=== PATIENT | male | born 1990 | race Asian ===

== ENCOUNTER 2019-09-28 19:40 | Inpatient (IN) | payer MEDICAID ==
[~2019-09-28] VITALS: Ht 175.3 cm; Wt 65.0 kg
[2019-09-28 21:31] LABS: BASOPHILS % (AUTO) 0.4 % (0.0-2.0); EOSINOPHILS % (AUTO) 0.4 % (1.0-6.0); LYMPHOCYTES # (AUTO) 0.9 K/uL (1.0-4.8); LYMPHOCYTES % (AUTO) 9.3 % (22.0-44.0); MEAN CORPUSCULAR HEMOGLOBIN 29.9 pg (26.0-34.0); MEAN CORPUSCULAR VOLUME 88 fL (80-100); MONOCYTES # (AUTO) 0.5 K/uL (0.1-1.0); MONOCYTES % (AUTO) 5.3 % (2.0-9.0); NEUTROPHILS # (AUTO) 8.6 K/uL (1.8-7.7); NEUTROPHILS % (AUTO) 84.6 % (40.0-70.0); PLATELET COUNT (AUTO) 313 K/uL (150-450); RED BLOOD CELL COUNT(AUTO) 5.34 MIL/uL (4.50-5.90); RED CELL DISTRIBUTION WIDTH 12.9 % (11.5-14.5)
[2019-09-28 21:43] LABS: ANION GAP 9 mmol/L (8-16); CARBON DIOXIDE 31 mmol/L (22-29); CHLORIDE 101 mmol/L (98-107); CREATININE 1.11 mg/dL (0.60-1.30); GLOMERULAR FILTR. RATE CALC > 60 mL/min (>60); GLUCOSE,RANDOM 114 mg/dL (70-110); POTASSIUM 3.8 mmol/L (3.5-5.1); SODIUM SERUM 141 mmol/L (136-145); UREA NITROGEN, BLOOD 12 mg/dL (7-18)
[2019-09-28 21:48] LABS: ALANINE AMINOTRANSFERASE 190 U/L (12-78); ALBUMIN 4.9 g/dL (3.4-5.0); ALKALINE PHOSPHATASE 94 U/L (46-116); ASPARTATE AMINOTRANSFERASE 248 U/L (15-37); BILIRUBIN,TOTAL 1.5 mg/dL (0.1-1.0); LIPASE 104 U/L (73-393)
[2019-09-28] MEDS ORDERED: CefTRIAXone 1 GM/DEXTROSE 50 ML IV ONE (22:00)
[2019-09-28] MEDS ORDERED: MetroNIDAZOLE 500 MG/NACL 100 ML IV ONE (22:00)
[2019-09-28 22:23] LABS: APPEARANCE,URINE TURBID (CLEAR); BILIRUBIN,URINE NEGATIVE (NEGATIVE); GLUCOSE, URINE (UA) NEGATIVE (NEGATIVE); KETONES,URINE NEGATIVE (NEGATIVE); LEUKOCYTE ESTERASE ,URINE NEGATIVE (NEGATIVE); NITRATE,URINE NEGATIVE (NEGATIVE); OCCULT BLOOD,URINE NEGATIVE (NEGATIVE); PH,URINE 7.5 (5.0-8.0); PROTEIN,URINE NEGATIVE (NEGATIVE)
[2019-09-28] MEDS ORDERED: ONDANSETRON HCL 4 MG/2 ML VIAL IVP PRN (22:30)
[2019-09-28] MEDS ORDERED: ACETAMINOPHEN 325 MG TABLET PO PRN (22:30)
[2019-09-28] MEDS ORDERED: 0.9% SODIUM CHLORIDE 10 ML SYRINGE IVP PRN (22:30)
[2019-09-29] MEDS ORDERED: POTASSIUM CHL 10 MEQ/WATER 50 ML IV PRN
[2019-09-29] MEDS ORDERED: POTASSIUM CHLORIDE 20 MEQ ER TABLET PO PRN
[2019-09-29] MEDS ORDERED: MAGNESIUM SULFATE 2 GM/WATER 50 ML IV PRN
[2019-09-29] MEDS ORDERED: MAGNESIUM SULFATE 4 GM/WATER 100 ML IV PRN
[2019-09-29] MEDS ORDERED: MORPHINE SULFATE 2 MG/ML SYRINGE IVP PRN
[2019-09-29] MEDS ORDERED: ONDANSETRON HCL 4 MG/2 ML VIAL IVP PRN
[2019-09-29] MEDS ORDERED: MAGNESIUM OXIDE 400 MG TABLET PO PRN
[2019-09-29] MEDS: HEPARIN SODIUM,PORCINE 5,000 UNITS/ML VIAL SQ SCH ×3 (00:48→15:43)
[2019-09-29 02:05] VITALS: BP 148/101
[2019-09-29 04:30] VITALS: BP 140/109
[2019-09-29] MEDS: PIPERACILLIN/TAZO 3.375 GM/D5W 50 ML IV SCH ×2 (05:03→16:16)
[2019-09-29 08:03] LABS: BASOPHILS % (AUTO) 0.3 % (0.0-2.0); EOSINOPHILS % (AUTO) 1.8 % (1.0-6.0); HEMATOCRIT 45.8 % (41-53); HEMOGLOBIN 15.5 g/dL (13.5-17.5); LYMPHOCYTES # (AUTO) 1.1 K/uL (1.0-4.8); LYMPHOCYTES % (AUTO) 12.7 % (22.0-44.0); MEAN CORPUSCULAR HEMOGLOBIN 29.7 pg (26.0-34.0); MEAN CORPUSCULAR HGB CONC 33.8 G/dL (31.0-37.0); MEAN CORPUSCULAR VOLUME 88 fL (80-100); MONOCYTES # (AUTO) 0.7 K/uL (0.1-1.0); MONOCYTES % (AUTO) 8.2 % (2.0-9.0); NEUTROPHILS # (AUTO) 6.7 K/uL (1.8-7.7); PLATELET COUNT (AUTO) 307 K/uL (150-450); RED BLOOD CELL COUNT(AUTO) 5.22 MIL/uL (4.50-5.90); RED CELL DISTRIBUTION WIDTH 12.7 % (11.5-14.5); RETICULOCYTE % (AUTO) 1.2 % (0.5-2.3)
[2019-09-29 08:19] LABS: PROTHROMBIN TIME 10.5 SEC (9.4-11.6)
[2019-09-29 08:22] LABS: ALANINE AMINOTRANSFERASE 462 U/L (12-78); ALBUMIN 4.2 g/dL (3.4-5.0); ALKALINE PHOSPHATASE 110 U/L (46-116); ANION GAP 8 mmol/L (8-16); ASPARTATE AMINOTRANSFERASE 404 U/L (15-37); BILIRUBIN,TOTAL 4.5 mg/dL (0.1-1.0); CALCIUM, TOTAL 9.3 mg/dL (8.8-10.5); CARBON DIOXIDE 28 mmol/L (22-29); CHLORIDE 103 mmol/L (98-107); CREATININE 0.87 mg/dL (0.60-1.30); GLOMERULAR FILTR. RATE CALC > 60 mL/min (>60); GLUCOSE,RANDOM 96 mg/dL (70-110); POTASSIUM 3.6 mmol/L (3.5-5.1); SODIUM SERUM 139 mmol/L (136-145); TOTAL PROTEIN, SERUM 8.1 g/dL (6.4-8.2); UREA NITROGEN, BLOOD 7 mg/dL (7-18)
[2019-09-29] MEDS: PANTOPRAZOLE SODIUM 40 MG/VIAL IVP SCH (08:52)
[2019-09-29 08:53] VITALS: BP 130/67
[2019-09-29] MEDS ORDERED: LIDOCAINE 2%/EPI 1:200,000/PF 20 ML VIAL ONE (09:01)
[2019-09-29] MEDS ORDERED: SODIUM CHLORIDE 0.9% 0 ML ONE (09:02)
[2019-09-29] MEDS ORDERED: BUPIVACAINE HCL/PF 0.5% 30 ML VIAL ONE (09:02)
[2019-09-29] MEDS ORDERED: MEPERIDINE-PF 25 MG/ML VIAL IVP PRN (10:15)
[2019-09-29] MEDS ORDERED: FentaNYL CITRATE-PF 100 MCG/2 ML VIAL IVP PRN (10:15)
[2019-09-29] MEDS ORDERED: HYDROmorphone 2 MG/ML SYRINGE IVP PRN (10:15)
[2019-09-29] MEDS ORDERED: RINGERS SOLUTION,LACTATED 1,000 ML IV ONE ×3 (10:18→12:35)
[2019-09-29] MEDS ORDERED: FLUMAZENIL 0.1 MG/ML 5 ML VIAL IVP ONE (11:43)
[2019-09-29] MEDS ORDERED: ALBUTEROL SULFATE 2.5 MG/0.5 ML NEB SOLUTION NEB ONE ×2 (12:36→12:45)
[2019-09-29] MEDS ORDERED: FUROSEMIDE 40 MG/4 ML VIAL ONE (12:41)
[2019-09-29 15:47] VITALS: BP 132/92
[2019-09-29] MEDS ORDERED: SODIUM CHLORIDE 0.9% 250 ML IV ONE (16:13)
[2019-09-29] MEDS ORDERED: SODIUM CHLORIDE 0.9% 1,000 ML IV ONE ×2 (17:30)
[2019-09-29] MEDS ORDERED: FUROSEMIDE 20 MG/2 ML VIAL IVP ONE (17:45)
[2019-09-29] MEDS: HYDROCODONE/ACETAMINOPHEN 5-325 MG TABLET PO PRN (18:22)
[2019-09-29 20:41] VITALS: BP 146/92
[2019-09-29] MEDS: FUROSEMIDE 20 MG/2 ML VIAL IVP SCH (21:00)
[2019-09-29] MEDS: OXYGEN THERAPY IH SCH (21:08)
[2019-09-30] VITALS (9 sets, daily range): BP systolic 85–152; BP diastolic 50–101
[2019-09-30] MEDS: PIPERACILLIN/TAZO 3.375 GM/D5W 50 ML IV SCH ×5 (00:22→23:27)
[2019-09-30] MEDS: FUROSEMIDE 20 MG/2 ML VIAL IVP SCH ×2 (00:22→08:04)
[2019-09-30] MEDS ORDERED: MIDAZOLAM HCL 2 MG/2 ML VIAL IVP ONE (06:16)
[2019-09-30] MEDS ORDERED: KETOROLAC TROMETHAMINE 60 MG/2 ML VIAL IM ONE (06:16)
[2019-09-30] MEDS ORDERED: SUCCINYLCHOLINE CHLORIDE 20 MG/ML 10 ML VIAL IVP ONE (06:16)
[2019-09-30] MEDS ORDERED: PROPOFOL 1% 20 ML VIAL IVP ONE (06:16)
[2019-09-30] MEDS ORDERED: ONDANSETRON HCL 4 MG/2 ML VIAL IVP ONE (06:16)
[2019-09-30] MEDS ORDERED: METOPROLOL TARTRATE 5 MG/5 ML VIAL IVP ONE (06:16)
[2019-09-30] MEDS ORDERED: FentaNYL CITRATE-PF 100 MCG/2 ML VIAL IVP ONE (06:16)
[2019-09-30 07:58] LABS: ALANINE AMINOTRANSFERASE 519 U/L (12-78); ALKALINE PHOSPHATASE 197 U/L (46-116); ANION GAP 14 mmol/L (8-16); ASPARTATE AMINOTRANSFERASE 267 U/L (15-37); BILIRUBIN,TOTAL 9.6 mg/dL (0.1-1.0); CALCIUM, TOTAL 9.1 mg/dL (8.8-10.5); CARBON DIOXIDE 29 mmol/L (22-29); CHLORIDE 92 mmol/L (98-107); CREATININE 1.32 mg/dL (0.60-1.30); GLOMERULAR FILTR. RATE CALC > 60 mL/min (>60); GLUCOSE,RANDOM 107 mg/dL (70-110); POTASSIUM 3.9 mmol/L (3.5-5.1); SODIUM SERUM 135 mmol/L (136-145); TOTAL PROTEIN, SERUM 7.8 g/dL (6.4-8.2); UREA NITROGEN, BLOOD 22 mg/dL (7-18)
[2019-09-30] MEDS: HYDROCODONE/ACETAMINOPHEN 5-325 MG TABLET PO PRN (08:03)
[2019-09-30] MEDS: HEPARIN SODIUM,PORCINE 5,000 UNITS/ML VIAL SQ SCH ×4 (08:04→23:37)
[2019-09-30] MEDS: PANTOPRAZOLE SODIUM 40 MG/VIAL IVP SCH (08:04)
[2019-09-30] MEDS: OXYGEN THERAPY IH SCH ×3 (08:05→20:00)
[2019-09-30] MEDS ORDERED: MEPERIDINE-PF 25 MG/ML VIAL IVP PRN (10:15)
[2019-09-30] MEDS ORDERED: FentaNYL CITRATE-PF 100 MCG/2 ML VIAL IVP PRN (10:15)
[2019-09-30] MEDS ORDERED: HYDROmorphone 2 MG/ML SYRINGE IVP PRN (10:15)
[2019-09-30] MEDS ORDERED: SODIUM CHLORIDE 0.9% 1,000 ML ONE (10:55)
[2019-09-30] MEDS ORDERED: IOTHALAMATE MEGLUMINE 600 MG/ML 50 ML VIAL IVP ONE (11:16)
[2019-09-30] MEDS ORDERED: SUGAMMADEX SODIUM 200 MG/2 ML VIAL IVP ONE ×2 (12:19→12:50)
[2019-09-30] MEDS: 0.9% SODIUM CHLORIDE 10 ML SYRINGE IVP PRN ×2 (20:50→23:30)
[2019-09-30] MEDS: MORPHINE SULFATE 2 MG/ML SYRINGE IVP PRN (20:50)
[2019-10-01] MEDS: HYDROCODONE/ACETAMINOPHEN 5-325 MG TABLET PO PRN ×4 (01:39→21:17)
[2019-10-01 04:00] VITALS: BP 150/95
[2019-10-01] MEDS: 0.9% SODIUM CHLORIDE 10 ML SYRINGE IVP PRN (05:12)
[2019-10-01] MEDS: PIPERACILLIN/TAZO 3.375 GM/D5W 50 ML IV SCH ×3 (05:12→16:51)
[2019-10-01 05:24] VITALS: BP 145/92
[2019-10-01] MEDS ORDERED: MIDAZOLAM HCL 2 MG/2 ML VIAL IVP ONE (06:45)
[2019-10-01] MEDS ORDERED: PROPOFOL 1% 20 ML VIAL IVP ONE (06:45)
[2019-10-01] MEDS ORDERED: ROCURONIUM BROMIDE 10 MG/ML 5 ML VIAL IVP ONE (06:45)
[2019-10-01] MEDS ORDERED: DEXAMETHASONE SOD PHOS 4 MG/ML VIAL IVP ONE (06:45)
[2019-10-01] MEDS ORDERED: LIDOCAINE/PF 2% 5 ML VIAL IM ONE (06:45)
[2019-10-01] MEDS ORDERED: ALBUTEROL SULFATE HFA 90 MCG/PUFF 8 GM INHALER IH ONE (06:45)
[2019-10-01] MEDS ORDERED: ONDANSETRON HCL 4 MG/2 ML VIAL IVP ONE (06:45)
[2019-10-01 07:45] VITALS: BP 152/108
[2019-10-01] MEDS: OXYGEN THERAPY IH SCH ×2 (08:00→08:28)
[2019-10-01] MEDS: PANTOPRAZOLE SODIUM 40 MG/VIAL IVP SCH (08:28)
[2019-10-01] MEDS: HEPARIN SODIUM,PORCINE 5,000 UNITS/ML VIAL SQ SCH ×2 (08:28→16:51)
[2019-10-01 11:09] LABS: ANION GAP 10 mmol/L (8-16); CALCIUM, TOTAL 8.8 mg/dL (8.8-10.5); CARBON DIOXIDE 29 mmol/L (22-29); CHLORIDE 95 mmol/L (98-107); CREATININE 1.16 mg/dL (0.60-1.30); GLOMERULAR FILTR. RATE CALC > 60 mL/min (>60); GLUCOSE,RANDOM 105 mg/dL (70-110); POTASSIUM 3.7 mmol/L (3.5-5.1); SODIUM SERUM 134 mmol/L (136-145); UREA NITROGEN, BLOOD 14 mg/dL (7-18)
[2019-10-01 11:10] VITALS: BP 144/95
[2019-10-01 11:14] LABS: ALANINE AMINOTRANSFERASE 400 U/L (12-78); ALKALINE PHOSPHATASE 199 U/L (46-116); ASPARTATE AMINOTRANSFERASE 186 U/L (15-37); BILIRUBIN,TOTAL 7.3 mg/dL (0.1-1.0); TOTAL PROTEIN, SERUM 7.5 g/dL (6.4-8.2)
[2019-10-01 11:15] LABS: ALBUMIN 3.8 g/dL (3.4-5.0); LIPASE 1185 U/L (73-393)
[2019-10-01] MEDS ORDERED: METR500 PO (11:56)
[2019-10-01] MEDS ORDERED: CIPR-278 PO (11:57)
[2019-10-01] MEDS: MORPHINE SULFATE 2 MG/ML SYRINGE IVP PRN ×2 (13:20→16:52)
[2019-10-01 16:00] VITALS: BP 143/100
[2019-10-01 19:29] VITALS: BP 149/98
[2019-10-02] MEDS: PIPERACILLIN/TAZO 3.375 GM/D5W 50 ML IV SCH ×3 (00:03→10:56)
[2019-10-02 00:05] VITALS: BP 146/102
[2019-10-02] MEDS: HEPARIN SODIUM,PORCINE 5,000 UNITS/ML VIAL SQ SCH ×2 (00:09→08:32)
[2019-10-02] MEDS: OXYGEN THERAPY IH SCH (03:47)
[2019-10-02 05:28] VITALS: BP 154/99
[2019-10-02 07:47] VITALS: BP 136/92
[2019-10-02 08:03] LABS: ALANINE AMINOTRANSFERASE 415 U/L (12-78); ALBUMIN 3.8 g/dL (3.4-5.0); ALKALINE PHOSPHATASE 201 U/L (46-116); ANION GAP 8 mmol/L (8-16); ASPARTATE AMINOTRANSFERASE 171 U/L (15-37); BILIRUBIN,TOTAL 9.9 mg/dL (0.1-1.0); CALCIUM, TOTAL 9.2 mg/dL (8.8-10.5); CARBON DIOXIDE 28 mmol/L (22-29); CHLORIDE 93 mmol/L (98-107); CREATININE 0.73 mg/dL (0.60-1.30); GLOMERULAR FILTR. RATE CALC > 60 mL/min (>60); GLUCOSE,RANDOM 93 mg/dL (70-110); POTASSIUM 3.5 mmol/L (3.5-5.1); SODIUM SERUM 129 mmol/L (136-145); TOTAL PROTEIN, SERUM 7.7 g/dL (6.4-8.2); UREA NITROGEN, BLOOD 11 mg/dL (7-18)
[2019-10-02] MEDS: PANTOPRAZOLE SODIUM 40 MG/VIAL IVP SCH (08:32)
[2019-10-02] MEDS ORDERED: AmLODIPine BESYLATE 5 MG TABLET PO SCH (09:00)
[2019-10-02] MEDS ORDERED: SODIUM CHLORIDE 0.9% 1,000 ML IV ONE (09:30)
[2019-10-02 12:00] VITALS: BP 151/109
[2019-10-02 15:14] LABS: PHOSPHORUS 2.4 mg/dL (2.5-4.9)
== END 2019-10-02 15:40 | disposition left against medical advice (07) | DRG 418 ==
LOC: EMS 19:41 → 6S 23:53 → 5S 09-29 14:29
PROVIDERS: ADMIT Internal Medicine; ATTEND Internal Medicine
PROC: 0FT44ZZ Resection of Gallbladder, Percutaneous Endoscopic Approach (ICD-10-PCS; principal; 2019-09-29 09:30)
PROC: 0FC98ZZ Extirpation of Matter from Common Bile Duct, Via Natural or Artificial Opening Endoscopic (ICD-10-PCS; 2019-09-30)
PROC: BF101ZZ Fluoroscopy of Bile Ducts using Low Osmolar Contrast (ICD-10-PCS; 2019-09-30)
DX: K80.40 Calculus of bile duct with cholecystitis, unspecified, without obstruction (principal); N17.9 Acute kidney failure, unspecified; R09.02 Hypoxemia; B96.89 Other specified bacterial agents as the cause of diseases classified elsewhere; Z03.818 Encounter for observation for suspected exposure to other biological agents ruled out; Z53.29 Procedure and treatment not carried out because of patient's decision for other reasons
CPT/HCPCS: 74181; 74328; 76705; 83735; 84100; 85045; 87040; 87205; 88304; C9113; G0238; J0330; J0696; J1100; J1644; J1885; J1940; J2250; J2270; J2405; J2543; J2704; J3010; J3490; J3535; J7030; J7050; J7120; Q9961

== ENCOUNTER 2020-02-18 10:58 | Emergency (ER) | payer SELFPAY ==
[~2020-02-18] VITALS: Ht 172.7 cm; Wt 68.2 kg
[~2020-02-18 10:58] MED LIST: CIPR-278 PO; METR500 PO
[2020-02-18] MEDS ORDERED: PROPARACAINE HCL 0.5% 15 ML OPHTHALMIC SOLUTION OD ONE (11:30)
[2020-02-18] MEDS ORDERED: TOBRAMYCIN/DEXAMETHASONE 5 ML OPHTHALMIC SUSPENSION OD ONE (12:00)
[2020-02-18 12:26] VITALS: BP 141/78
== END 2020-02-18 12:37 | disposition home or self-care (01) ==
LOC: EMS 11:03
DX: T15.01XA Foreign body in cornea, right eye, initial encounter (principal); F17.210 Nicotine dependence, cigarettes, uncomplicated; F12.90 Cannabis use, unspecified, uncomplicated; W45.8XXA Other foreign body or object entering through skin, initial encounter; Y93.89 Activity, other specified; Y92.89 Other specified places as the place of occurrence of the external cause; Y99.8 Other external cause status
CPT/HCPCS: 65220; Z7502; Z7610